=== PATIENT | female | born 1990 | race Hispanic/Latino ===

== ENCOUNTER 2018-07-22 18:56 | Emergency (ER) | payer OTHER, SELFPAY ==
--- OUTSIDE RECORDS SUMMARY | 2018-07-22 18:59 | XMS REPORT ---
:1990 [facility] Address [address] [place] [address] Dr. Bernabe [address] [place] [id number] Care Team Providers Name Role Phone Unavailable Unavailable Unavailable Problems This patient has no known problems. Allergies, Adverse Reactions, Alerts This patient has no known allergies or adverse reactions. Medications This patient has no known medications.
--- NOTE | 2018-07-22 20:05 | ER ---
Nurse's Notes [facility] Name: Salina Sanderson Age: 28 yrs Sex: Female : 1990 Arrival Date: 07/22/2018 Time: 18:58 Bed 13 Private MD: Diagnosis: GASTROCNEMIUS TEAR PARTIAL RIGHT LEG Presentation: 07/22 19:25 Presenting complaint: Patient states: I took off running after my kid and my calf ed1 started to hurt then I felt something pop. Transition of care: patient was not received from another setting of care. Onset of symptoms was July 22, 2018. Risk Assessment: Do you want to hurt yourself or someone else? Patient reports no desire to harm self or others. Initial Sepsis Screen: Does the patient meet any 2 criteria? No. Patient's initial sepsis screen is negative. Does the patient have a suspected source of infection? No. Patient's initial sepsis screen is negative. Care prior to arrival: None. 19:25 Method Of Arrival: Ambulatory ed1 19:25 Acuity: BRANT 4 ed1 Triage Assessment: 19:26 General: Appears uncomfortable, Behavior is calm, cooperative. Pain: Complains of pain ed1 in right calf Pain currently is 5 out of 10 on a pain scale. at worst was 10 out of 10 on a pain scale. 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 - Social history:: Smoking status: Patient/guardian denies using tobacco. - Ebola Screening: : Patient negative for fever greater than or equal to 101.5 degrees Fahrenheit, and additional compatible Ebola Virus Disease symptoms Patient denies exposure to infectious person Patient denies travel to an Ebola-affected area in the 21 days before illness onset No symptoms or risks identified at this time. Screenin:00 Abuse screen: Denies threats or abuse. Nutritional screening: No deficits noted. jb4 Tuberculosis screening: No symptoms or risk factors identified. Fall Risk None identified. Assessment: 20:00 General: Appears in no apparent distress. uncomfortable, Behavior is calm, cooperative, jb4 appropriate for age. Pain: Complains of pain in right calf Pain does not radiate. Pain currently is 5 out of 10 on a pain scale. Neuro: Level of Consciousness is awake, alert, obeys commands, Oriented to person, place, time, situation. Cardiovascular: Patient's skin is warm and dry. Respiratory: Airway is patent Respiratory effort is even, unlabored, Respiratory pattern is regular, symmetrical. GI: No signs and/or symptoms were reported involving the gastrointestinal system. : No signs and/or symptoms were reported regarding the genitourinary system. EENT: No signs and/or symptoms were reported regarding the EENT system. Derm: Skin is healthy with good turgor, Skin is pink, warm \T\ dry. Musculoskeletal: Circulation, motion, and sensation intact. Vital Signs: 19:26 BP 100 / 64; Pulse 66; Resp 17; Temp 98(TE); Pulse Ox 98% on R/A; Weight 102.06 kg; ed1 Height 5 ft. 3 in. (160.02 cm); Pain 5/10; 20:31 BP 106 / 57; Pulse 66; Resp 17; Temp 98.8; Pulse Ox 98% ; rr5 19:26 Body Mass Index 39.86 (102.06 kg, 160.02 cm) ed1 ED Course: 18:58 Patient arrived in ED. as 19:25 Triage completed. ed1 19:26 Arm band placed on right wrist. ed1 19:30 Sean Serrano, RN is Primary Nurse. jb4 19:33 Blair Lombardi MD is Attending Physician. tw4 Administered Medications: 20:20 Drug: TORadol 60 mg Route: IM; Site: right gluteus; jb4 20:34 Follow up: Response: No adverse reaction; Pain is decreased jb4 Outcome: 20:05 Discharge ordered by . tw4 20:35 Patient left the ED. jb4 Signatures: Nancy Amaya Erika, RN RN ed1 Sean Serrano, RN RN jb4 Blair Lombardi MD MD tw4 Gabo Parker RN RN rr5
--- NOTE | 2018-07-22 20:05 | EDPHYS ---
Physician Documentation [facility] Name: Salina Sanderson Age: 28 yrs Sex: Female : 1990 Arrival Date: 07/22/2018 Time: 18:58 Bed 13 Private MD: ED Physician Blair Lombardi HPI: 07/22 20:37 This 28 yrs old Female presents to ER via Ambulatory with complaints of Leg tw4 Pain. 20:37 The patient presents with an injury. The complaints affect the right calf. Context: The tw4 problem was sustained at home, resulted from the patient falling, while running. Onset: The symptoms/episode began/occurred today. Modifying factors: The symptoms are alleviated by nothing. the symptoms are aggravated by nothing. Associated signs and symptoms: The patient has no apparent associated signs or symptoms. Treatment prior to arrival includes: no previous treatment, elevation of the extremity. Severity of symptoms: At their worst the symptoms were moderate, in the emergency department the symptoms are unchanged. The patient has not experienced similar symptoms in the past. 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 - Social history:: Smoking status: Patient/guardian denies using tobacco. - Ebola Screening: : Patient negative for fever greater than or equal to 101.5 degrees Fahrenheit, and additional compatible Ebola Virus Disease symptoms Patient denies exposure to infectious person Patient denies travel to an Ebola-affected area in the 21 days before illness onset No symptoms or risks identified at this time. ROS: 20:37 Constitutional: Negative for fever, chills, and weight loss, Cardiovascular: Negative tw4 for chest pain, palpitations, and edema, Respiratory: Negative for shortness of breath, cough, wheezing, and pleuritic chest pain, Abdomen/GI: Negative for abdominal pain, nausea, vomiting, diarrhea, and constipation, Back: Negative for injury and pain. 20:37 MS/extremity: Positive for injury or acute deformity, decreased range of motion, Negative for Exam: 20:37 Constitutional: This is a well developed, well nourished patient who is awake, alert, tw4 and in no acute distress. Head/Face: Normocephalic, atraumatic. Chest/axilla: Normal chest wall appearance and motion. Nontender with no deformity. No lesions are appreciated. Cardiovascular: Regular rate and rhythm with a normal S1 and S2. No gallops, murmurs, or rubs. Normal PMI, no JVD. No pulse deficits. Respiratory: Lungs have equal breath sounds bilaterally, clear to auscultation and percussion. No rales, rhonchi or wheezes noted. No increased work of breathing, no retractions or nasal flaring. 20:37 Musculoskeletal/extremity: Extremities: noted in the right calf: decreased ROM, pain. Vital Signs: 19:26 BP 100 / 64; Pulse 66; Resp 17; Temp 98(TE); Pulse Ox 98% on R/A; Weight 102.06 kg; ed1 Height 5 ft. 3 in. (160.02 cm); Pain 5/10; 20:31 BP 106 / 57; Pulse 66; Resp 17; Temp 98.8; Pulse Ox 98% ; rr5 19:26 Body Mass Index 39.86 (102.06 kg, 160.02 cm) ed1 MDM: 19:33 Patient medically screened. tw4 20:51 Data reviewed: vital signs, nurses notes. Data interpreted: Pulse oximetry: tw4 Interpretation: normal. Counseling: I had a detailed discussion with the patient and/or guardian regarding: the historical points, exam findings, and any diagnostic results supporting the discharge/admit diagnosis. Medication response: Toradol relieved patient's pain. The symptoms have resolved. Response to treatment: and as a result, I will discharge patient. Special discussion: I discussed with the patient/guardian in detail that at this point there is no indication for admission to the hospital. It is understood, however, that if the symptoms persist or worsen the patient needs to return immediately for re-evaluation. Administered Medications: 20:20 Drug: TORadol 60 mg Route: IM; Site: right gluteus; jb4 20:34 Follow up: Response: No adverse reaction; Pain is decreased jb4 Disposition: 07/22/18 20:05 Discharged to Home. Impression: GASTROCNEMIUS TEAR PARTIAL RIGHT LEG. - Condition is Stable. - Discharge Instructions: Muscle Strain. - Prescriptions for Ibuprofen 800 mg Oral Tablet - take 1 tablet by ORAL route every 8 hours As needed take with food; 30 tablet. - Medication Reconciliation Form, Thank You Letter, Antibiotic Education, Prescription Opioid Use form. - Follow up: Private Physician; When: Upon discharge from the Emergency Department; Reason: If symptoms return, Recheck today's complaints, Continuance of care. - Problem is new. - Symptoms have improved. Signatures: Nadira Puente RN RN ed1 Sean Serrano RN RN jb4 Blair Lombardi MD MD tw4 Corrections: (The following items were deleted from the chart) 20:20 20:03 Crutches ordered. tw4 jb4 20:35 20:05 07/22/2018 20:05 Discharged to Home. Impression: GASTROCNEMIUS TEAR PARTIAL RIGHT jb4 LEG. Condition is Stable. Forms are Medication Reconciliation Form, Thank You Letter, Antibiotic Education, Prescription Opioid Use. Follow up: Private Physician; When: Upon discharge from the Emergency Department; Reason: If symptoms return, Recheck today's complaints, Continuance of care. Problem is new. Symptoms have improved. tw4
[2018-07-22] MEDS ORDERED: KETOROLAC 30 MG/ML INJ ONE (20:31)
[2018-07-22 21:25] VITALS: O2SAT 98
[2018-07-22 21:28] VITALS: BP 106/57; TEMP 98.8
== END 2018-07-22 20:35 | disposition home or self-care (01) ==
LOC: ER 18:56
DX: S86.111A Strain of other muscle(s) and tendon(s) of posterior muscle group at lower leg level, right leg, initial encounter (principal); W19.XXXA Unspecified fall, initial encounter; Y93.02 Activity, running; Y92.009 Unspecified place in unspecified non-institutional (private) residence as the place of occurrence of the external cause
CPT/HCPCS: 96372; 99283